=== PATIENT | female | born 1965 | race Caucasian/White ===

== ENCOUNTER 2018-06-14 13:23 | Emergency (ER) | payer OTHER ==
[2018-06-14] MEDS ORDERED: LORazepam 2 MG/ML SDV IVPUSH ONE (13:47)
[2018-06-14] MEDS ORDERED: Alum Hydrox/Mag Hydrox/Simeth 30 ML, Lidocaine 2% 15 ML PO ONE ×2 (13:47)
[2018-06-14] MEDS ORDERED: Sodium Chloride 0.9% 1,000 ML IV SCH (14:00)
--- NOTE | 2018-06-14 14:01 | EDM.PDOC ---
ED HPI GENERAL MEDICAL PROBLEM - General Chief Complaint: Chest Pain Stated Complaint: CHEST TIGHTNESS Time Seen by Provider: 06/14/18 13:35 Source of Information: Reports: Patient History Limitations: Reports: No Limitations - History of Present Illness INITIAL COMMENTS - FREE TEXT/NARRATIVE: Patient is a 52-year-old female presents ED complaining of chest tightness. Patient states this came on abruptly approximately 3 hours ago while at work sitting at her desk. States she's been under more stress recently dealing with ear issues and experienced dizziness at time of onset. She is concerned that one of the ear tubes in the right ear has displaced. She did take some meclizine since the dizziness was described as room spinning with resolution. She has a flight scheduled for next week and is concerned that she may not be able to continue with schedule as planned due to her ear issues. The chest tightness she believes may be brought on by a panic attack to which she's never had one. She has no history of heart disease as well. She did become mildly nauseated with no emesis. There was no diaphoresis although she did feel flushed. She did have some tingling to her legs that resolved with standing. She has chronic numbness and tingly to her fingers that was unchanged. Denies any paraesthesias to her lip. She did feel at times her heart was racing. Again she believes more likely related to a panic attack although she has never had one. She has no history of heart issues, diabetes, hypertension, hypercholesterolemia, or first degree relative with heart disease. She denies any cough, hemoptysis, shortness of breath, abdominal pain, nausea or vomiting, dark tarry stools, bloody stools, dysuria, increased swelling to lower extremities, pain to lower extremities, and/or any additional complaints. She has no history of PE or DVT. Chest Pain Score (Numeric/FACES): 6 - Related Data Allergies Allergy/AdvReac Type Severity Reaction Status Date / Time povidone-iodine Allergy Rash Verified 06/14/18 13:31 [From Betadine] soap [From Betadine] Allergy Rash Verified 06/14/18 13:31 Home Meds: Home Meds Amoxicillin/Potassium Clav [Augmentin 875-125 Tablet] 1 each PO BID #20 tablet 06/14/18 [Rx] Levothyroxine 5 mg PO DAILY 06/14/18 [History] Meclizine [Antivert] 12.5 mg PO ASDIRECTED 06/14/18 [History] Montelukast [Singulair] 10 mg PO BEDTIME 06/14/18 [History] Ondansetron [Zofran ODT] 0.4 mg PO QID 06/14/18 [History] Past Medical History HEENT History: Reports: Sinusitis Respiratory History: Reports: Bronchitis, Recurrent, Pneumonia, Recurrent Gastrointestinal History: Reports: Chronic Constipation, Diverticulosis, GERD Psychiatric History: Reports: Anxiety Endocrine/Metabolic History: Reports: Hypothyroidism - Past Surgical History HEENT Surgical History: Reports: Myringotomy w Tube(s) GI Surgical History: Reports: Cholecystectomy, Colonoscopy, Hernia, Inguinal, Hernia Repair/Other Female Surgical History: Reports: Hysterectomy, Other (See Below) Other Female Surgeries/Procedures: bilateral mastectomy 1 yr ago;high risk family issues ED ROS GENERAL - Review of Systems Review Of Systems: ROS reveals no pertinent complaints other than HPI. ED EXAM, GENERAL - Physical Exam Exam: See Below Exam Limited By: No Limitations General Appearance: Alert, WD/WN, No Apparent Distress, Anxious Eye Exam: Bilateral Eye: Normal Inspection Ears: Normal External Exam, Normal Canal, Hearing Grossly Normal, Other (Ear tubes in place bilaterally.) Nose: Normal Inspection Throat/Mouth: Normal Inspection, Normal Oropharynx, Normal Voice, No Airway Compromise Head: Atraumatic, Normocephalic, Facial Tenderness (right frontal and maxillary sinuses. ) Neck: Normal Inspection, Supple Respiratory/Chest: No Respiratory Distress, Lungs Clear, Normal Breath Sounds, No Accessory Muscle Use, Chest Non-Tender Cardiovascular: Normal Peripheral Pulses, Regular Rate, Rhythm, No Murmur Peripheral Pulses: 2+: Radial (L), Radial (R), Posterior Tibial (L), Posterior Tibial (R) GI/Abdominal: Normal Bowel Sounds, Soft, Non-Tender, No Organomegaly, No Distention Back Exam: Normal Inspection Extremities: Normal Inspection, Non-Tender, No Pedal Edema Neurological: Alert, Oriented, CN II-XII Intact, Normal Cognition, No Motor/ Sensory Deficits Psychiatric: Normal Affect, Normal Mood Skin Exam: Warm, Dry, Intact, Normal Color Course - Vital Signs Last Recorded V/S: Last Vital Signs Temp 98.4 F 06/14/18 14:19 Pulse 95 06/14/18 18:01 Resp 16 06/14/18 18:01 BP 125/78 06/14/18 18:01 Pulse Ox 95 06/14/18 18:01 - Orders/Labs/Meds Orders: Active Orders 24 hr Category Date Time Status Orthostatic Vital Signs [RC] ASDIRECTED Care 06/14/18 13:55 Active Labs: Laboratory Tests 06/14/18 06/14/18 06/14/18 Range/Units 14:05 14:05 14:05 WBC 6.76 (3.98-10.04) K/mm3 RBC 4.92 (3.98-5.22) M/mm3 Hgb 13.8 (11.2-15.7) gm/L Hct 42.2 (34.1-44.9) % MCV 85.8 (79.4-94.8) fl MCH 28.0 (25.6-32.2) pg MCHC 32.7 (32.2-35.5) g/dl RDW Std Deviation 43.2 (36.4-46.3) fL Plt Count 253 (182-369) K/mm3 MPV 8.4 L (9.4-12.3) fl Neutrophils % (Manual) 77 H (40-60) % Band Neutrophils % 0 (0-10) % Lymphocytes % (Manual) 23 (20-40) % Atypical Lymphs % 0 % Monocytes % (Manual) 0 L (2-10) % Eosinophils % (Manual) 0 L (0.7-5.8) % Basophils % (Manual) 0 L (0.1-1.2) Platelet Estimate Adequate RBC Morph Comment Normal PT 10.7 (9.5-12.1) SECONDS INR 0.98 APTT 29 (24-31) SECONDS D-Dimer, Quantitative (0.19-0.50) mg/L Sodium 138 (136-145) mEq/L Potassium 3.9 (3.5-5.1) mEq/L Chloride 102 (98-107) mEq/L Carbon Dioxide 25 (21-32) mEq/L Anion Gap 14.9 (5-15) BUN 21 H (7-18) mg/dL Creatinine 0.8 (0.55-1.02) mg/dL Est Cr Clr Drug Dosing 68.05 mL/min Estimated GFR (MDRD) > 60 (>60) mL/min BUN/Creatinine Ratio 26.3 H (14-18) Glucose 123 H (74-106) mg/dL Calcium 9.5 (8.5-10.1) mg/dL Magnesium 1.8 (1.8-2.4) mg/dl Total Bilirubin 0.4 (0.2-1.0) mg/dL AST 16 (15-37) U/L ALT 27 (14-59) U/L Alkaline Phosphatase 76 (46-116) U/L Troponin I < 0.017 (0.00-0.056) ng/mL C-Reactive Protein 0.3 (<1.0) mg/dL Total Protein 7.6 (6.4-8.2) g/dl Albumin 4.1 (3.4-5.0) g/dl Globulin 3.5 gm/dL Albumin/Globulin Ratio 1.2 (1-2) Free T4 0.90 (0.76-1.46) ng/dL TSH 3rd Generation 3.873 H (0.358-3.74) uIU/mL 06/14/18 06/14/18 06/14/18 Range/Units 14:05 14:05 15:10 WBC (3.98-10.04) K/mm3 RBC (3.98-5.22) M/mm3 Hgb (11.2-15.7) gm/L Hct (34.1-44.9) % MCV (79.4-94.8) fl MCH (25.6-32.2) pg MCHC (32.2-35.5) g/dl RDW Std Deviation (36.4-46.3) fL Plt Count (182-369) K/mm3 MPV (9.4-12.3) fl Neutrophils % (Manual) (40-60) % Band Neutrophils % (0-10) % Lymphocytes % (Manual) (20-40) % Atypical Lymphs % % Monocytes % (Manual) (2-10) % Eosinophils % (Manual) (0.7-5.8) % Basophils % (Manual) (0.1-1.2) Platelet Estimate RBC Morph Comment PT (9.5-12.1) SECONDS INR APTT (24-31) SECONDS D-Dimer, Quantitative 0.21 (0.19-0.50) mg/L Sodium (136-145) mEq/L Potassium (3.5-5.1) mEq/L Chloride (98-107) mEq/L Carbon Dioxide (21-32) mEq/L Anion Gap (5-15) BUN (7-18) mg/dL Creatinine (0.55-1.02) mg/dL Est Cr Clr Drug Dosing mL/min Estimated GFR (MDRD) (>60) mL/min BUN/Creatinine Ratio (14-18) Glucose (74-106) mg/dL Calcium (8.5-10.1) mg/dL Magnesium (1.8-2.4) mg/dl Total Bilirubin (0.2-1.0) mg/dL AST (15-37) U/L ALT (14-59) U/L Alkaline Phosphatase (46-116) U/L Troponin I Cancelled < 0.017 (0.00-0.056) ng/mL C-Reactive Protein (<1.0) mg/dL Total Protein (6.4-8.2) g/dl Albumin (3.4-5.0) g/dl Globulin gm/dL Albumin/Globulin Ratio (1-2) Free T4 (0.76-1.46) ng/dL TSH 3rd Generation (0.358-3.74) uIU/mL Meds: Medications Discontinued Medications Generic Name Dose Route Start Last Admin Trade Name Freq PRN Reason Stop Dose Admin Al Hydroxide/Mg Hydroxide 30 0 ml 06/14/18 13:47 06/14/18 14:07 ml/ Lidocaine HCl 15 ml PO 06/14/18 13:48 45 ml ONETIME ONE Administration Sodium Chloride 1,000 mls @ 250 mls/hr 06/14/18 14:00 06/14/18 14:07 Normal Saline IV 250 mls/hr ASDIRECTED BRUCE Administration Lorazepam 0.5 mg 06/14/18 13:47 06/14/18 14:07 Ativan IVPUSH 06/14/18 13:48 0.5 mg ONETIME ONE Administration - Re-Assessments/Exams Free Text/Narrative Re-Assessment/Exam: Blood pressure 137/84. Heart rate 112. Pain to the chest is 5 out of 10 and mild in nature. Described as chest tightness. She is feeling anxious. She has no history of heart disease nor any risk factors. No first-degree relatives with heart disease as well. Differential diagnosis includes: PE, and STEMI, STEMI, anxiety, panic attack, GERD, atypical chest pain, chest wall pain to name a few. IV established with normal saline. Ativan 0.5 mg IVP and also GI cocktail order. Initial labs and studies include: CBC, chem 14, CRP, d-dimer, magnesium, coag studies, TSH, free T4, troponin, time troponin, chest x-ray one view, and orthostatic vitals. Labs reviewed: CBC and chem 14 were essentially normal. Troponin within normal limits. Free T4 within normal limits. TSH mildly elevated at 3.873. Will await for second troponin and 3 hours prior to discharge. Reassessment, patient states she has no symptoms at this time. Suspect this more likely related to anxiety/panic attack. She did get some relief with taking the GI cocktail. She did not report with initial history taking she is taking Protonix and also Carafate for gastritis. As stated all symptoms have resolved. Second troponin came back negative. Patient will be discharged home with instructions for gastritis, panic attack, anxiety, and atypical chest pain. Return precautions were discussed with the patient. She had no further questions or concerns and agreed with plan. Departure - Departure Time of Disposition: 17:58 Disposition: Home, Self-Care 01 Condition: Good Clinical Impression: Atypical chest pain, Elevated TSH, Panic attack Gastroesophageal reflux disease Qualifiers: Esophagitis presence: esophagitis presence not specified Qualified Code(s): K21.9 - Gastro-esophageal reflux disease without esophagitis Gastritis Qualifiers: Gastritis type: unspecified gastritis Chronicity: chronic Gastritis bleeding: without bleeding Qualified Code(s): K29.50 - Unspecified chronic gastritis without bleeding Sinusitis Qualifiers: Sinusitis location: unspecified location Chronicity: acute Recurrence: non- recurrent Qualified Code(s): J01.90 - Acute sinusitis, unspecified Prescriptions: Amoxicillin/Potassium Clav [Augmentin 875-125 Tablet] 1 each PO BID #20 tablet Instructions: Food Choices for Gastroesophageal Reflux Disease, Adult, Hypothyroidism, Panic Attack, [id number], Nonspecific Chest Pain Referrals: Pamela Shay PA-C [Primary Care Provider] - Forms: ED Department Discharge Additional Instructions: Make an appointment to see your PCP in 3-5 days for reevaluation. I suspect cause of discomfort may be associated with gastritis. Continue taking the Protonix and Carafate as prescribed. In addition there is a component that may be brought on by a panic attack. Please see your PCP to discuss further treatment options for anxiety. Continue taking all your home medications as prescribed. TSH was mildly normal with a normal free T4. You may require further increase to your levothyroxine dose. I will Allow PCP to do so. In addition we'll treat her for sinusitis she's been expressing pain to the right- sided face. I would recommend follow-up with ENT specialist you have been seeing if pressure does not resolve. - My Orders Last 24 Hours: My Active Orders 06/14/18 13:55 Orthostatic Vital Signs [RC] ASDIRECTED - Assessment/Plan Last 24 Hours: My Active Orders 06/14/18 13:55 Orthostatic Vital Signs [RC] ASDIRECTED
--- NOTE | 2018-06-14 14:26 | CR ---
Chest: Portable view of the chest was obtained. Comparison: No prior chest x-ray. Heart size and mediastinum are normal. Minimal atelectasis seen within the left lung base. Lungs otherwise are clear. Bony structures are grossly intact. Surgical clips are seen within the left axillary region as well as within the upper right abdomen. Impression: 1. Incidental findings. Nothing acute is appreciated on portable chest x-ray. Diagnostic code #2
== END 2018-06-14 18:08 | disposition home or self-care (01) ==
LOC: JD.ED 13:23
DX: K29.50 Unspecified chronic gastritis without bleeding (principal); J01.90 Acute sinusitis, unspecified; K21.9 Gastro-esophageal reflux disease without esophagitis; R79.89 Other specified abnormal findings of blood chemistry; F41.0 Panic disorder [episodic paroxysmal anxiety]; R07.89 Other chest pain; F41.9 Anxiety disorder, unspecified; Z91.048 Other nonmedicinal substance allergy status; Z79.899 Other long term (current) drug therapy
CPT/HCPCS: 36415; 71045; 80053; 83735; 84439; 84443; 84484; 85007; 85027; 85379; 85610; 85730; 86140; 96361; 96374; 99285; A9270; J2060; J7040; 99284